=== PATIENT | female | born 1995 | race Two or more races ===

== ENCOUNTER 2019-06-17 16:51 | Emergency (ER) | payer SELFPAY ==
--- NOTE | 2019-06-17 17:38 | ER Document Report ---
ED General - General Chief Complaint: Psych Problem Stated Complaint: PSYCH EVAL/SUICIDAL IDEATION Time Seen by Provider: 06/17/19 17:05 Primary Care Provider: RICCI REYES MD [NO LOCAL MD] - Follow up as needed - [facility] Notes: Patient is a 23-year-old female with a history of depression who presents with mobile crisis for suicidal ideation without obvious plan. Patient first notified her teacher at the dental [employer] who is also accompanying patient. Patient described to them that she "does not want to be on this earth anymore." Patient does take part in self-harm to her thighs by hitting them causing bruising. She has no HI. No visual or auditory hallucinations. Patient at this time is not communicating well and is relatively unresponsive to questions voluntarily. Most of her history was obtained by mobile lalo, Carter, and he states that he did not get a lot out of her either. I did confirm everything that I was told with the patient which is noted to be accurate as she will give me yes or no responses. Patient has never been medicated for depression in the past. She has not been eating well and not been sleeping well. She is otherwise urinating normally and having normal bowel movements. Last menstrual period was 3 weeks ago. Denies any headache, fever, neck pain, URI, sore throat, chest pain, palpitations, syncope, cough, shortness of breath, wheeze, dyspnea, abdominal pain, nausea/vomiting/diarrhea, urinary retention, dysuria, hematuria, loss of control of bowel or bladder, numbness/tingling, saddle anesthesia, muscle paralysis/weakness, or rash. Denies drugs, etoh, smoking. Past Medical History - Social History Smoking Status: Never Smoker Family History: Reviewed & Not Pertinent Review of Systems - Review of Systems -: Yes All other systems reviewed and negative Physical Exam - Vital signs Vitals: Temp Pulse Resp BP Pulse Ox 99.0 F 122 H 20 132/89 H 99 06/17/19 16:55 06/17/19 16:55 06/17/19 16:55 06/17/19 16:55 06/17/19 16:55 - Notes Notes: PHYSICAL EXAMINATION: GENERAL: Well-appearing, well-nourished and in no acute distress. A&O. HEAD: Atraumatic, normocephalic. EYES: Pupils equal round and reactive to light, extraocular movements intact, sclera anicteric, conjunctiva are normal. ENT: Nares patent and without discharge. oropharynx clear without exudates. No tonsilar hypertrophy or erythema. Moist mucous membranes. NECK: Normal range of motion, supple without lymphadenopathy LUNGS: Breath sounds clear to auscultation bilaterally and equal. No wheezes rales or rhonchi. HEART: Regular rate and rhythm without murmurs, rubs, gallops. ABDOMEN: Soft, nontender, nondistended abdomen. No guarding, no rebound. Normal bowel sounds present. No CVA tenderness bilaterally. Musculoskeletal: FROM to passive/active. Strength 5+/5. N/v intact distal. + ecchymosis areas to the thighs b/l. Extremities: No cyanosis, clubbing, or edema b/l. Peripheral pulses 2+. Capillary refill less than 3 seconds. NEUROLOGICAL: Cranial nerves grossly intact. Normal speech, normal gait. Normal sensory, motor exams PSYCH: flat, tearful SKIN: see above. Warm, Dry, normal turgor, no rashes or lesions noted. Course - Re-evaluation Re-evalutation: 06/17/19 17:39 Patient is an afebrile, well-hydrated, 23-year-old female who presents with depression and suicidal ideation with self-harm. Vitals are currently acceptable without significant tachycardia, tachypnea, or hypoxia. PE is otherwise unremarkable. Patient has been placed on a 24-hour hold. Patient does not communicate well and has lack of eye contact. She was open enough with me to do yes or no answers. No obvious plan with her SI. No HI or visual/auditory hallucinations. Pt has not been medicated before so we will start with zyprexa 2.5mg twice daily. Other than labs pending, pt medically cleared for MH evaluation. Pt in agreement with plan thus far. 06/17/19 19:23 Labs unremarkable. - Vital Signs Vital signs: Temp Pulse Resp BP Pulse Ox 99.0 F 122 H 20 132/89 H 99 06/17/19 16:55 06/17/19 16:55 06/17/19 16:55 06/17/19 16:55 06/17/19 16:55 - Laboratory Result Diagrams: 06/17/19 17:16 06/17/19 17:16 Laboratory results interpreted by me: 06/17/19 06/17/19 17:16 17:16 Total Protein 8.3 H Urine Ketones 20 H Salicylates < 1.0 L Acetaminophen < 10 L Discharge - Discharge Clinical Impression: Suicidal ideation Condition: Stable Disposition: PSYCH HOSP/UNIT Referrals: RICCI REYES MD [NO LOCAL MD] - Follow up as needed
[2019-06-17 17:39] LABS: APPEARANCE,URINE CLEAR; BILIRUBIN,URINE NEGATIVE (NEGATIVE); COLOR,URINE YELLOW; GLUCOSE, URINE NEGATIVE (NEGATIVE); KETONES,URINE 20 mg/dL (NEGATIVE); LEUKOCYTE ESTERASE,URINE NEGATIVE (NEGATIVE); NITRITE,URINE NEGATIVE (NEGATIVE); PROTEIN,URINE NEGATIVE (NEGATIVE); URINE SPECIFIC GRAVITY 1.014; UROBILINOGEN,URINE NEGATIVE mg/dL (<2.0)
[2019-06-17 17:44] LABS: ABSOLUTE LYMPHOCYTES (AUTO) 2.3 10^3/uL (0.5-4.7); ABSOLUTE MONOCYTES (AUTO) 0.4 10^3/uL (0.1-1.4); ABSOLUTE NEUT (AUTO) 5.2 10^3/uL (1.7-8.2); BASOPHILS % (AUTO) 0.2 % (0-2); EOSINOPHILS % (AUTO) 0.5 % (0-6); HEMATOCRIT 42.5 % (36.0-47.0); HEMOGLOBIN 14.7 g/dL (12.0-15.5); LYMPHOCYTES % (AUTO) 29.1 % (13-45); MEAN CORPUSCULAR HEMOGLOBIN 31.3 pg (27.0-33.4); MEAN CORPUSCULAR HGB CONC 34.5 g/dL (32.0-36.0); MEAN CORPUSCULAR VOLUME 91 fl (80-97); MONOCYTES % (AUTO) 4.8 % (3-13); PLATELET COUNT 175 10^3/uL (150-450); RED CELL DISTRIBUTION WIDTH 12.6 % (11.5-14.0); SEGMENTED NEUTROPHILS % (AUTO) 65.4 % (42-78); TOTAL CELLS COUNTED % (AUTO) 100 %
[2019-06-17] MEDS ORDERED: OLANZAPINE 2.5 MG TABLET PO ONE (17:47)
[2019-06-17 18:00] LABS: URINE AMPHETAMINES SCREEN NEGATIVE; URINE BARBITURATES SCREEN NEGATIVE; URINE BENZODIAZEPINES SCREEN NEGATIVE; URINE COCAINE SCREEN NEGATIVE; URINE MARIJUANA (THC) SCREEN NEGATIVE; URINE METHADONE SCREEN NEGATIVE; URINE PHENCYCLIDINE SCREEN NEGATIVE
[2019-06-17 18:02] LABS: ALBUMIN 4.8 g/dL (3.5-5.0); ALKALINE PHOSPHATASE 63 U/L (38-126); ANION GAP 14 (5-19); ASPARTATE AMINO TRANSFERASE 25 U/L (14-36); BILIRUBIN,DIRECT 0.1 mg/dL (0.0-0.4); BILIRUBIN,TOTAL 0.6 mg/dL (0.2-1.3); BLOOD UREA NITROGEN 11 mg/dL (7-20); CALCIUM 10.2 mg/dL (8.4-10.2); CARBON DIOXIDE 24 mmol/L (22-30); CHLORIDE 105 mmol/L (98-107); GLUCOSE 86 mg/dL (75-110); POTASSIUM 4.4 mmol/L (3.6-5.0); TOTAL PROTEIN 8.3 g/dL (6.3-8.2)
[2019-06-17 18:04] LABS: ACETAMINOPHEN < 10 ug/mL (10-30); ALCOHOL < 10 mg/dL (NONE DETECTED); SALICYLATE < 1.0 mg/dL (2.0-20.0)
--- NOTE | 2019-06-17 19:12 | ER Document Report ---
Doctor's Note Notes: 06/17/19 19:11 Patient is a 23-year-old female with past medical history of depression not on any medications presenting to the ED for suicidal ideations and some self bruising. Patient being avoidant and hesitant to provide any information. Morris Reilly was able to speak to the crisis provider. Please see note for further information. Patient placed on a 24-hour hold by me for further psychiatric evaluation.
--- NOTE | 2019-06-17 22:47 | EKG REPORT ---
SEVERITY:- BORDERLINE ECG - SINUS RHYTHM LEFT AXIS DEVIATION BORDERLINE T ABNORMALITIES, ANTERIOR LEADS : Confirmed by: Rahul De La Torre MD 17-Jun-2019 22:46:52
--- NOTE | 2019-06-18 09:26 | PSYCHOLOGICAL NOTE ---
Psych Note - Psych Note Date seen by psych provider: 06/18/19 Time seen by psych provider: 08:10 Psych Note: Reason For Consult:Suicidal ideation Consent Permissions:Patient refused Pt states that she been having suicidal thoughts for a couple of days. Pt states that she has been having some life issues that has been weighing heavy on her. 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 She reports only that her teacher brought [facility]. She refused to speak further. Patient covered both her ears with her hands close to her eyes and started to cry. Clinician spoke with patient's mother who reports the patient says all the time that she does not like her life. She states the patient has no friends and does not sleep at night. She states that the patient cries every day. She denies any previous mental health diagnosis for the patient however states that she attempted to go to therapy 2 times previous for the same reasons however did not return stating "it is not for me." Diagnosis: Suicidal comments depression Medication recommendations per [facility]'s contracted psychiatrist Dr. Randy POE are as follows Zyprexa 2.5mg twice daily Impression\\plan:Patient is recommended for IVC. Patient refuses to engage after reportedly making a suicidal comment. Patient's mother reports the patient cries daily and states she singleton snot like her life. medication recommendations have been provided; Patient will be re-evaluated. Dr. Casanova was consulted to care management of this patient; attending physicians in agreement with recommendations and disposition.
[2019-06-18] MEDS ORDERED: OLANZAPINE 2.5 MG TABLET PO SCH (13:00)
--- NOTE | 2019-06-18 16:20 | ER Document Report ---
Doctor's Note Notes: 06/18/19 15:55 Evaluated patient. Vitals are stable. Patient accepted for transfer to psychiatric facility. Patient tearful.
[2019-06-18 16:38] VITALS: BP 107/78
== END 2019-06-18 16:30 ==
LOC: ER 16:51
DX: R45.851 Suicidal ideations (principal); F32.9 Major depressive disorder, single episode, unspecified; S70.12XA Contusion of left thigh, initial encounter; S70.11XA Contusion of right thigh, initial encounter; X83.8XXA Intentional self-harm by other specified means, initial encounter
CPT/HCPCS: 93005; 36415; 80307 ×4; 84443; 84703; 85025; 80053; 81001; 93010; J3490 ×2; 99285